=== PATIENT | female | born 1985 | race Caucasian/White ===

== ENCOUNTER 2022-11-08 10:20 | Emergency (ER) | payer OTHER, SELFPAY ==
[2022-11-08 10:32] VITALS: BP 133/99; PULSE 92; RESP 18; TEMP 37.3; O2SAT 98; BMI 26.6
--- NOTE | 2022-11-08 11:26 | ED_ITS ---
HPI - General Adult General Chief complaint: Skin/Abscess/Foreign Body Stated complaint: Cat bite LT arm Time Seen by Provider: 11/08/22 11:00 History of Present Illness HPI narrative: This 36-year-old female comes in for attention to a cat bite on her left hand. This occurred almost 2 days ago. She does have Augmentin at home and has taken 3 doses. She came in to urgent care and was sent here for further evaluation. She has some increased redness since last night. She is able to move her thumb and her wrist but reports significant pain. She does not report any fevers. 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 This particular cat that bit her has been observed for a couple weeks after it had been sent out of the owners home. This particular CT has been vaccinated but vaccines have been . The patient is not at all suspicious of any rabies infection and denies any further treatment or management in this regard. She simply wants to avoid a worsening infection in her hand. Related Data Previous Rx's Medication Instructions Recorded amoxicillin 875 mg-potassium 1 tab PO BID 10 days #20 tabs 11/08/22 clavulanate 125 mg tablet Allergies Allergy/AdvReac Type Severity Reaction Status Date / Time No Known Allergies Allergy Unknown Verified 11/08/22 10:32 [facility] Surgical History History of mandibular surgery (03/25/12) Social History Narrative: Wears glasses Smoking Status: Never smoker Do you use any of these nicotine containing products: None Second hand tobacco smoke exposure: No How often do you have a drink containing alcohol: monthly or less How many standard drinks containing alcohol do you have on a typical day: 1 or 2 How often do you have six or more drinks on one occasion: Less than monthly AUDIT-C Alcohol total score: 2 Non-prescribed substance use: denies use service: No Exam Const: Vital Signs, click to edit/add: Vital Signs - 24 hr 11/08/22 10:32 Temperature 99.1 F Pulse Rate [Pulse Oximeter] 92 Respiratory Rate 18 Blood Pressure [Ri ght Forearm] 133/99 H Pulse Oximetry 98 Oxygen Delivery Me thod Room Air Course Vital Signs Vital signs: Initial Vital Signs Temperature 99.1 F 11/08/22 10:32 Temperature Source Temporal Artery Scan 11/08/22 10:32 Pulse Rate 92 11/08/22 10:32 Pulse Rhythm 11/08/22 10:32 Respiratory Rate 18 11/08/22 10:32 Blood Pressure 133/99 H 11/08/22 10:32 Blood Pressure Mean 110 11/08/22 10:32 Blood Pressure Position Supine 11/08/22 10:32 Pulse Oximetry 98 11/08/22 10:32 Oxygen Delivery Method 11/08/22 10:32 Vital Signs Temperature 99.1 F 11/08/22 10:32 Pulse Rate 92 11/08/22 10:32 Respiratory Rate 18 11/08/22 10:32 Blood Pressure 133/99 H 11/08/22 10:32 Pulse Oximetry 98 11/08/22 10:32 Oxygen Delivery Method 11/08/22 10:32 Temperature 99.1 F 11/08/22 10:32 Pulse Rate 92 11/08/22 10:32 Respiratory Rate 18 11/08/22 10:32 Blood Pressure 133/99 H 11/08/22 10:32 Pulse Oximetry 98 11/08/22 10:32 Oxygen Delivery Method 11/08/22 10:32 Medical Decision Making MDM Narrative Medical decision making narrative: This patient comes in with a cat bite on her left hand. There is some typical swelling and erythema. She has started Augmentin and wants additional reassura nce that this treatment is appropriate. She does not have any decreased range of motion of the joints in her left hand and fingers. She is not showing any typical signs of intra-articular infection. I stated lab results and imaging studies are not likely to be helpful but nonetheless offered to do these. Her exam is certainly showing infection from a cat bite. She declined any further studies at this time but did agree to a intramuscular injection of Rocephin 1 g. I did also prescribe Augmentin. I described signs and symptoms that would indicate a need for return and re-evaluation. Discharge Plan Discharge Clinical Impression: Cat bite of hand Patient Disposition: Home, Self-Care Condition: Stable Additional Instructions: Take medication as prescribed. Follow up with MD or return if worsening symptoms occur. Prescriptions: New amoxicillin-pot clavulanate 875-125 mg tablet 1 tab PO BID 10 Days Qty: 20 0RF Follow Up/Referrals: Trinidad Turk PA-C [Primary Care Provider] - Stand Alone Forms: [employer] Info Instructions
[2022-11-08] MEDS: LIDOCAINE 1% 5 ml (pf) 5 ML VIAL 2.1 ML IM (11:57)
[2022-11-08] MEDS: cefTRIAXone 1 GM VIAL IM (11:58)
[2022-11-08 12:03] VITALS: BP 133/99; PULSE 92; RESP 18; TEMP 37.3
== END 2022-11-08 12:04 | disposition home or self-care (01) ==
LOC: ED 11:36
PROVIDERS: Emergency Provider Emergency Medicine Emergency Medical Services; PCP Physician Assistant Medical
DX: S61.432A Puncture wound without foreign body of left hand, initial encounter (principal); W55.01XA Bitten by cat, initial encounter
CPT/HCPCS: 96372; 99283; 99284; J0696